=== PATIENT | male | born 1930 | race Caucasian/White ===

== ENCOUNTER 2016-07-09 07:55 | Outpatient (CLI) | payer MEDICARE, BC ==
[~2016-07-09] VITALS: Ht 170.2 cm; Wt 68.2 kg
--- NOTE | ~2016-07-09 | HEMODYNAMI ---
PATIENT:MADHAV MCCARTY MEDICAL RECORD: [id number] : 34 LOCATION:D.CAT ADMISSION DATE: 07/09/16 Generatedon:07/09/201611:23 Patient name: MADHAV MCCARTY Patient #: [id number] SSN: : [id number] Date of study: 07/09/2016 Page: Of Hemodynamic Procedure Report Patient Data Patient Demographics Procedure consent was obtained First Name: MADHAV Gender: Male Last Name: BIBIANA : 1930 Patient #: [id number] Age: 86 year(s) Race: Unknown Additional ID: [id number] Contact details [address]: [address] [place] [address] State: [place] City: [place] Zip code: [address] Past Medical History Allergies Allergen Reaction Date Comments Reported Penicillins 07/09/2016 Admission Admission Data Admission Date: 07/09/2016 Admission Time: 7:55 Lab Results Lab Result Date: 07/09/2016 Lab Result Time: 0:00 Biochemistry Name Units Result Min Max Creatinine mg/dl 1.1 --(--*-)-- 0.6 1.3 CBC Name Units Result Min Max Hemoglobin g/dl 13.6 --(*---)-- 13.5 17.5 Procedure Procedure Types Cath Procedure Diagnostic Procedure LHC LHC w/Coronaries w/Grafts PCI Procedure SVG-BMS/OSEI Initial Miscellaneous Procedures Moderate Sedation up to 30 minutes Procedure Description Procedure Date Procedure Date: 07/09/2016 Procedure Start Time: 10:39 Procedure End Time: 11:05 Procedure Staff Name Function Norma Mata RT Monitor Vel Goel RT Court Magistrate Boby Mckoy RT Scrub Anali Little RN Nurse Jersey Buck MD Performing Physician Procedure Data Cath Procedure Fluoroscopy Diagnostic fluoroscopy Total fluoroscopy Time: 7.5 time: 7.5 min min Diagnostic fluoroscopy Total fluoroscopy dose: 376 dose: 376 mGy mGy Contrast Material Contrast Material Type Amount (ml) Isovue 300 183 Entry Location Entry Primary Successful Side Size Upsize Upsize Entry Closure Srinivasan ccessful Closure Location (Fr) 1 (Fr) 2 (Fr) Remarks Device Remarks Femoral Right 5 Fr 6 Fr Mechanical artery Short Compression Estimated blood loss: 10 ml Diagnostic catheters Device Type Used For End Catheter Placement Cordis 5Fr Pigtail LV Angiography Catheter (MP) Cordis 5Fr JL 4.0 Left Coronary Catheter (MP) Angiography Cordis 5Fr 3DRC Catheter Internal mammary (MP) arteriography Cordis 5Fr 3DRC Catheter SVG Angiography (MP) Diagnostic Infinity 5Fr SVG Angiography AR 2 MOD catheter Procedure Complications No complications Procedure Medications Medication Administration Route Dosage Oxygen NC 2 l/min Lidocaine 2% added to field 20 Heparin Flush Bag added to field 2 bags (1000units/500ml NS) 0.9% NaCl I.V. 100 ml/hr Versed I.V. 1 mg Fentanyl I.V. 50 mcg Versed I.V. 1 mg Fentanyl I.V. 50 mcg Heparin Bolus I.V. 5000 units Integrilin (Bolus I.V. 6.2 ml 2mg/ml) Plavix P.O. 600 mg Hemodynamics Rest HGB: 13.6 (g/dl) Heart Rate: 76 (bpm) Snapshots Pre Cath Intra NCS Post Cath Vital Signs Time Heart Resp SPO2 etCO2 [id number] NIBP (mmHg) Rhythm Pain Sedation Rate (ipm) (%) (mmHg) (mmHg) Status Level (bpm) 10:28:37 75 17 98 0 0 169/88(135) NSR 0 (11) 10(A) , No pain 10:32:57 73 16 99 0 0 158/83(132) NSR 0 (11) 10(A) , No pain 10:37:13 69 16 99 0 0 149/80(126) NSR 0 (11) 10(A) , No pain 10:41:27 68 18 99 0 0 135/80(118) NSR 0 (11) 9(A) , No pain 10:45:37 73 15 98 0 0 143/72(119) NSR 0 (11) 9(A) , No pain 10:49:49 78 17 99 0 0 151/77(120) NSR 0 (11) 9(A) , No pain 10:54:05 77 18 99 0 0 138/70(127) NSR 0 (11) 9(A) , No pain 10:58:17 74 17 99 0 0 137/69(114) NSR 0 (11) 10(A) , No pain 11:02:29 80 16 99 0 0 143/73(121) NSR 0 (11) 10(A) , No pain Medications Time Medication Route Dose Verified Delivered Reason Not es Effectiveness by by 10:35:02 Oxygen NC 2 l/min Jersey Buffie used for Cielo Little RN procedure 10:35:09 Lidocaine 2% added 20ml Jersey Buffie used for to vial Cielo Little RN procedure field 10:35:15 Heparin Flush added 2 bags Jersey Buffie used for Bag to Cielo Little RN procedure (1000units/500ml field NS) 10:35:27 0.9% NaCl I.V. 100ml/hr Jersey Buffike Per physician Cielo Little RN 10:38:28 Versed I.V. 1 mg Jersey Gayie for sedation Cielo Little RN 10:38:34 Fentanyl I.V. 50 mcg Jersey Gayie for sedation Cielo Little RN 10:42:17 Versed I.V. 1 mg Jersey Buffie for sedation Cielo Little RN 10:42:21 Fentanyl I.V. 50 mcg Jersey Buffie for sedation Cielo Little RN 10:48:27 Heparin Bolus I.V. 5000 Jersey Buffie for emily ified units Cielo Little RN anticoagulation with dr buck 10:50:55 Integrilin I.V. 6.2 ml Jersey Buffie for Was kassie (Bolus 2mg/ml) Cielo Little RN antiplatelet 3.8 ml therapy of vial. 11:02:18 Plavix P.O. 600 mg Jersey Buffie for Cielo Little RN antiplatelet therapy Procedure Log Time Note 10:11:03 Vel LEOS(R) sent for patient. Start room use. 10:11:05 Time tracking: Regular hours 10:11:08 Plan of Care:Hemodynamics will remain stable., Cardiac rhythm will remain stable., Comfort level will be maintained., Respiratory function will remain adequate., Patient/ family verbilizes understanding of procedure., Procedure tolerated without complication., Recovers from procedure without complications.. 10:22:09 Patient received from Pre/Post Procedure Room to CCL 1 Alert and oriented. Tansferred to table in Supine position. 10:22:11 Warm blankets applied, and jessica hugger turned on for patient comfort. 10:22:12 Correct patient and procedure confirmed by team. 10:22:14 Signed procedure consent form obtained from patient. 10:22:15 ECG and BP/O2 sat monitors applied to patient. 10:22:17 Full Disclosure recording started 10:27:30 Vital chart was started 10:32:06 Baseline sample Acquired. 10:32:09 Rhythm: sinus rhythm 10:32:29 H&P Date Dictated: 06/17/2016 Within 30 days and on chart., H&P Addendum completed by physician on day of procedure. (MUST COMPLETE FOR ALL OUTPATIENTS). 10:32:38 Pre-procedure instructions explained to patient. 10:32:39 Pre-op teaching completed and patient verbalized understanding. 10:32:47 Family in patients room. 10:32:50 Patient NPO since Midnight. 10:32:59 Patient allergic to Penicillins 10:33:04 Is the patient allergic to Iodine/contrast media? No. 10:33:11 Is patient on blood thinner?No 10:33:13 Patient diabetic? No. 10:33:18 Previous problem with sedation/anesthesia? No ? 10:33:19 Snore? Yes 10:33:20 Sleep apnea? No 10:33:21 Deviated septum? No 10:33:22 Opens mouth fully? Yes 10:33:23 Sticks out tongue? Yes 10:33:26 Airway obstruction? No ? 10:33:28 Dentures? No ? 10:33:35 Pre procedure: right dorsailis pedis pulse 2+ Normal; easily identifiable; not easily obliterated 10:33:38 Patient pain scale 0/10 ?. 10:33:44 IV patent on arrival in left hand with 0.9% NaCl at O. 10:34:06 Lab Result : Hemoglobin 13.6 g/dl 10:34:06 Lab Result : Creatinine 1.1 mg/dl 10:34:10 Lab results completed and on chart. 10:34:13 Alarms reviewed by R. N. 10:34:13 Right groin area was prepped with chlora-prep and draped in sterile fashion 10:34:14 Sharps counted by scrub and verified by R.N. 10:34:15 Final Timeout: patient, procedure, and site verified with staff and physician. All members of the team are in agreement. 10:34:17 Right groin site verified by team. 10:34:20 Physical assessment completed. ASA score P 2 - A patient with mild systemic disease as per Jersey Buck MD. 10:34:22 Sedation plan: IV Moderate Sedation Versed, Fentanyl 10:34:28 Use device set Femoral Dx 10:34:29 Bag Decanter opened to sterile field. 10:34:29 Acist Syringe opened to sterile field. 10:34:30 Terumo 5Fr Lincoln Sheath opened to sterile field. 10:34:30 Medline Cath Pack opened to sterile field. 10:34:31 St Jared 260cm J .035 wire opened to sterile field. 10:34:32 Acist Hand Control opened to sterile field. 10:34:33 Diagnostic Infinity 5Fr Multipack catheter opened to sterile field. 10:34:33 Acist Manifold opened to sterile field. 10:34:34 Tegaderm 4 x 4 opened to sterile field. 10:35:02 Oxygen 2 l/min NC was given by Anali Little RN; used for procedure; 10:35:09 Lidocaine 2% 20ml vial added to field was given by Anali Little RN; used for procedure; 10:35:15 Heparin Flush Bag (1000units/500ml NS) 2 bags added to field was given by Anali Little RN; used for procedure; 10:35:27 0.9% NaCl 100ml/hr I.V. was given by Anali Little RN; Per physician; 10:37:56 Zero performed for pressure channel P1 10:38:01 Zero performed for pressure channel P1 10:38:28 Versed 1 mg I.V. was given by Anali Little RN; for sedation; 10:38:34 Fentanyl 50 mcg I.V. was given by Anali Little RN; for sedation; 10:39:31 Procedure started. 10:39:45 Local anesthetic to right femoral artery with Lidocaine 2% by Jersey Buck MD.INITIAL ACCESS ONLY 10:41:48 A 5 Fr sheath was inserted into the Right Femoral artery 10:42:02 A Cordis 5Fr Pigtail Catheter (MP) was advanced over the wire and used for LV Angiography. 10:42:17 Versed 1 mg I.V. was given by Anali Little RN; for sedation; 10:42:21 Fentanyl 50 mcg I.V. was given by Anali Little RN; for sedation; 10:42:48 LV gram done using [place] 10:42:50 LV hemodynamics recorded. 10:42:54 Injector settings: Ml/sec: 5, Volume: 15, 10:42:56 Catheter removed. 10:43:04 A Cordis 5Fr JL 4.0 Catheter (MP) was advanced over the wire and used for Left Coronary Angiography. 10:43:40 Catheter removed. 10:44:55 A Cordis 5Fr 3DRC Catheter (MP) was advanced over the wire and used for Internal mammary arteriography.To LAD 10:45:10 A Cordis 5Fr 3DRC Catheter (MP) was advanced over the wire and used for SVG Angiography.To RCA 10:45:57 Catheter removed. 10:47:05 A Diagnostic Infinity 5Fr AR 2 MOD catheter was advanced over the wire and used for SVG Angiography.To OM 10:47:08 Catheter removed. 10:47:18 Medtronic Launcher 6Fr AR 2.0 guide catheter opened to sterile field. 10:47:28 SLR Technology Solutions BasixCompak Inflation Kit opened to sterile field. 10:47:28 Brandon Whisper J 300cm 0.014 guide wire opened to sterile field. 10:47:36 Terumo 6Fr Lincoln Sheath opened to sterile field. 10:48:27 Heparin Bolus 5000 units I.V. was given by Anali Little RN; for anticoagulation; verified with dr buck 10:49:20 Sheath upsized to a 6 Fr Short. 10:49:27 6 Fr AR 2.0 guide catheter was inserted over the wire 10:50:55 Integrilin (Bolus 2mg/ml) 6.2 ml I.V. was given by Anali Little RN; for antiplatelet therapy; Wasted 3.8 ml of vial. 10:50:58 Whisper wire advanced. 10:53:04 The Medtronic Resolute 2.25 X 12 stent was advanced then removed because of failure to cross lesion 10:55:07 Inflation number: 1 A Strawberry energy [place] 2.0 X 12 balloon was prepped and advanced across the Aorta Left -> 1st Ob Dalia, then inflated to 13 OVI for 0:04 (min:sec). 10:55:25 Inflation number: 2 The [place] QCoefficient [place] 2.0 X 12 balloon was reinflated across the Aorta Left -> 1st Ob Dalia, to 13 OVI for 0:05 (min:sec). 10:55:47 Balloon removed over the wire. 10:57:52 Inflation Number: 3 A Medtronic Resolute 2.25 X 12 stent was prepped and advanced across the Aorta Left -> 1st Ob Dalia. The stent was deployed at 11 OVI for 0:07 (min:sec). 10:58:27 Stent catheter was removed intact over wire. 10:58:28 Guide catheter removed. 10:58:28 Wire removed. 10:58:35 Sheath removed intact; hemostasis achieved with Mechanical Compression to the Right Femoral artery. 10:58:42 Vascade 6/7 Fr Closure Device opened to sterile field. 10:58:45 Procedure ended.(Physican Out) 10:59:00 Fluoroscopy time 07.50 minutes. 10:59:03 Fluoroscopy dose: 376 mGy 10:59:03 Flurop Dose total: 376 10:59:13 Contrast amount:Isovue 300 183ml. 10:59:15 Sharps counted by scrub and verified by R.N. 10:59:16 Insertion/operative site no bleeding no hematoma. 10:59:21 Post-op/insertion site Right Femoral artery dressed using a 4 x 4 and Tegaderm. 10:59:25 Post right femoral artery:stable, clean and dry 10:59:27 Post Procedure Pulses reassessed and unchanged 10:59:32 Post-procedure physical assessment completed. ASA score P 2 - A patient with mild systemic disease as per Jersey Buck MD. 10:59:34 Post procedure rhythm: unchanged. 10:59:37 Estimated blood loss: 10 ml 10:59:38 Post procedure instruction explained to patient.Patient verbalizes understanding. 10:59:39 Patient needs reinforcement of post procedure teaching. 11:00:08 Procedure type changed to Cath procedure, Diagnostic procedure, LHC, LHC w/Coronaries w/Grafts, PCI procedure, SVG-BMS/OSEI Initial, Miscellaneous Procedures, Moderate Sedation up to 30 minutes 11:01:52 Procedure and supply charges have been captured, reviewed, submitted and are correct. 11:01:59 Procedure Complication : No complications 11:02:02 See physician's report for complete and final results. 11:02:18 Plavix 600 mg P.O. was given by Anali Little RN; for antiplatelet therapy; 11:05:00 Femstop placed over the right femoral artery at 100 mmHg. Hemostasis achieved. 11:05:00 Post right femoral artery:bleeding, hematoma 11:05:00 St Jared Femstop Arch Gold opened to sterile field. 11:05:07 Vital chart was stopped 11:05:09 Report given to Pre/Post Procedure Room. 11:05:12 Patient transfered to Pre/Post Procedure Room with Bed. ::19 Procedure ended. :05:19 Full Disclosure recording stopped 11:05:24 End room use (Document Last) Intervention Summary Intervention Notes Time ActionType Lesion and Equipment Action# Pressure Duration Attributes Used 10:53:04 Discard Medtronic Stent Resolute 2.25 X 12 stent 10:55:07 Inflate Aorta Left [place] 1 13 00:04 balloon -> 1st Ob Sci Dalia [place] 2.0 X 12 balloon 10:55:25 Reinflate Aorta Left [place] 2 13 00:05 balloon -> 1st Ob Sci Dalia [place] 2.0 X 12 balloon 10:57:52 Place stent Aorta Left Medtronic 3 11 00:07 -> 1st Ob Resolute Dal[place] 2.25 X 12 stent Device Usage Item Name Manufacture Quantity Catalog Number Hospital Part Current Mini mal Lot# / Charge Number Stock Stock Serial# Code Acist Acist 1 43430 [id number] 039700 657972 20 Syringe Medical Systems Inc Bag Microtek 1 2002S 729873 42540 940460 5 Versafe Inc. Medline Cardinal 1 [id number] 831757 75425 153378 5 Cath Pack Health Terumo 5Fr Terumo 1 [id number] 070956 087295 233548 [address] Jared 1 125766 497137 757279 180535 30 260cm J .035 wire Acist Hand Acist 1 69341 806252 935062 357021 5 Control Medical Systems Inc Acist Acist 1 36461 073647 972554 269565 5 Manifold Medical Systems Inc Diagnostic Cardinal 1 [id number] 385562 67350 263385 30 Meeting To You 5Fr Multipack catheter Tegaderm 4 3M 1 1626W 507546 914124 068720 5 x 4 Cordis 5Fr Cardinal 1 783559 5 Pigtail Health Catheter (MP) Cordis 5Fr Cardinal 1 124437 5 JL 4.0 Health Catheter (MP) Cordis 5Fr Cardinal 1 289704 5 3DRC Health Catheter (MP) Diagnostic Cardinal 1 [id number] 828176 642032 246068 20 Infinity Health 5Fr AR 2 MOD catheter Medtronic Medtronic 1 [id number] 863277 32552 398859 1 Launcher 6Fr [place] 2.0 guide catheter Brandon Brandon 1 [id number] 372045 796405 059269 5 Whisper J Vascular 300cm 0.014 guide wire Merit Merit 1 [id number] 141573 708712 626478 15 Innotech Solar Medical Inflation Kit Terumo 6Fr Terumo 1 [id number] 635168 241815 010929 40 Lincoln Sheath Medtronic Medtronic 1 [id number] 909893 152518 4 [id number] Resolute 2.25 X 12 stent [place] Sci [place] 1 [id number] 377088 951460 496789 1 [id number] Live Gamer Scientific 2.0 X 12 balloon Vascade 10/23 Cardiva 1 [id number] 733691 004089 706379 5 Fr Closure Medical, Device Inc. St Jared St Jared 1 [id number] 826341 742982 605085 5 Femstop Arch Gold Signature Audit [place] Stage Time Signature Unsigned Intra-Procedure 07/09/2016 Norma Green Counts 11:05:35 AM Counts RT(R) RT(R) 07/09/2016 11:20:32 AM Intra-Procedure 07/09/2016 Norma 11:23:01 AM Counts RT(R) Signatures Monitor : Norma Signature : Counts RT Date : Time : [facility] [address] [place] [address]
[2016-07-09 08:12] VITALS: BP 175/75; Ht 170.2 cm; Wt 68.2 kg
[2016-07-09] MEDS ORDERED: BAYER CHEWABLE81 MG PO (08:26)
[2016-07-09] MEDS ORDERED: BILBERRY100 MG PO (08:27)
[2016-07-09] MEDS ORDERED: FLOVENT DI50 MCG/DIS INH (08:27)
[2016-07-09 08:45] LABS: ANION GAP 11.2 mmol/L (8-16); CALCIUM 8.9 mg/dL (8.5-10.1); CARBON DIOXIDE 28.7 mmol/L (21.0-32.0); CREATININE - SERUM 1.1 mg/dL (0.6-1.3); POTASSIUM - SERUM 3.9 mmol/L (3.5-5.1)
[2016-07-09 09:35] LABS: BASOPHILS 0.2 % (0.0-2.0); EOSINOPHILS 7.4 % (0-7); HEMATOCRIT 41.1 % (42.0-54.0); HEMOGLOBIN 13.6 g/dL (13.5-17.5); MCH 30.5 pg (26.0-34.0); MCHC 33.1 g/dL (31.0-37.0); MCV 92.2 fL (80.0-100.0); MEAN PLATELET VOLUME 10.7 fL (7.4-10.4); MONOCYTES 10.1 % (2-11); NEUTROPHILS 54.3 % (40-80); PLATELET COUNT 167 10x3/uL (130-400); RBC 4.46 10x6/uL (4.20-6.10); RDW 13.1 % (11.5-14.5); WBC 5.4 10x3/uL (4.8-10.8)
[2016-07-09] MEDS ORDERED: PLAVIX75 MG PO (11:10)
--- NOTE | 2016-07-09 11:34 | NUR ---
HR 72 BP 164/82 NO C/O OR DISTRESS NOTED. 6 FR VASCADE R/GROIN CDI NO BLEEDING NO HEMATOMA NOTED. INSTRUCTED PATIENT TO KEEP HEAD FLAT ON PILLOW WITH RLE STRAIGHT. FAMILY AT SIDE
--- NOTE | 2016-07-09 11:56 | NUR ---
WATER GIVEN. NO C/O NAUSEA AT THIS TIME. WILL CONTINUE TO MONITOR.
--- NOTE | 2016-07-09 12:09 | NUR ---
SANDWICH TRAY GIVEN TO PATIENT WITH ASSISTING
--- NOTE | 2016-07-09 12:31 | NUR ---
1215 REPORT AND CARE FROM LAVELL CAT RN. PT DENIES ANY C/O. VSS. FEMSTOP IN PLACE TO RIGHT GROIN, NO BLEEDING OR HEMATOMA NOTED. PEDAL PULSES PALPABLE. FEET WARM TO TOUCH, CAP REFILL IS BRISK. AT BEDSIDE. PT IS TOLERATING DIET WITH NO C/O NAUSEA.
--- NOTE | 2016-07-09 13:27 | NUR ---
1315 PT DENIES ANY C/O. PRESSURE HAS BEEN RELIEVED FROM FEMSTOP WITH NO BLEEDING OR HEMATOMA NOTED. PEDAL PULSES PALPABLE. FAMILY AT BEDSIDE. CALL LIGHT IN REACH, INSTRUCTED PT TO CALL FOR NEEDS.
--- NOTE | 2016-07-09 15:20 | NUR ---
1450 DRESING TO RIGHT GROIN REMAINS CDI, NO BLEEDING OR HEMATOMA AT SITE. PEDAL PULSES PALPABLE. PT DENIES ANY C/O. IV DC'D WITH CATH INTACT. PT DRESSING FOR DC TO HOME. DC INSTUCTIONS HAVE BEEN REVIEWED AND PT/FAMILY VERBALIZE UNDERSTANDING. WRITTEN COPIES PROVIDED. 1500 GROIN REMAINS STABLE WITH AMBULATION. PT ESCORTED TO PRIVATE AUTO VIA WC BY STAFF WITH SON DRIVING HIM HOME.
--- NOTE | 2016-07-12 08:47 | OP ---
PATIENT NAME: MADHAV MCCARTY MEDICAL RECORD: [id number] :34 LOCATION:D.CAT ADMISSION DATE: SURGEON: SOHAIL WEBB MD DATE OF OPERATION: 07/09/2016 PROCEDURES: 1. PTCA stent of left circumflex through the patent vein graft. 2. Left heart catheterization. 3. Selective coronary angiography. 4. Vein graft angiography. 5. GARDNER angiography. 6. Left ventriculogram. INDICATION: Angina and coronary artery disease. DESCRIPTION OF PROCEDURE: After informed consent was obtained and after detailed explanation of risks, benefits as well as alternative therapies, the patient elected to proceed with angiogram and angioplasty. The right femoral area was prepped and draped in normal sterile fashion. The right femoral artery was cannulated via modified Seldinger technique with placement of 6-Dominican sheath. All catheters exchanged through this sheath. FINDINGS: Left ventriculogram was performed in standard 30-degree [place] view reveals preserved cardiac wall motion, ejection fraction 55%. SELECTIVE CORONARY ANGIOGRAPHY: 1. Left main is closed. 2. Right coronary artery is closed. 3. Vein graft to the RCA is widely patent. Distal RCA has moderate diffuse disease, but is patent. 4. GARDNER to the LAD is patent. The distal LAD has moderate diffuse disease, but is patent. 5. Vein graft to the left circumflex is patent; however, the left circumflex has a 95% stenosis after the patent vein graft. PERCUTANEOUS TRANSLUMINAL CORONARY ANGIOPLASTY STENT OF THE LEFT CIRCUMFLEX AFTER THE VEIN GRAFT: The stent used was a 2.25 x 12 mm Resolute. Result was 0% residual stenosis. OVERALL IMPRESSION: Successful percutaneous transluminal coronary angioplasty stent of the left circumflex through the patent vein graft going from 95% initial stenosis to 0% residual. TRANSINT:[id number] Voice Confirmation ID: [id number] DOCUMENT ID: [id number] SOHAIL WEBB MD at 0847 CC: [id number] DICTATION DATE: 07/09/16 1104 [employer] SAL[employer] SPECIALIST: 07/09/16 1947 DEP CLI 07/09/16 [facility] [address] [place] [id number]
== END 2016-07-09 15:00 | disposition home or self-care (01) ==
LOC: D.CATH 07:55
PROVIDERS: Internal Medicine Interventional Cardiology
DX: I25.119 Atherosclerotic heart disease of native coronary artery with unspecified angina pectoris (principal); Z95.1 Presence of aortocoronary bypass graft
CPT/HCPCS: 93459; C9604

== ENCOUNTER 2017-08-21 08:25 | Emergency (ER) | payer MEDICARE, BC ==
[2016-07-09 08:12] VITALS: BMI 23.5
[~2017-08-21 08:25] MED LIST: BAYER CHEWABLE81 MG PO; BILBERRY100 MG PO; FLOVENT DI50 MCG/DIS INH; PLAVIX75 MG PO
[2017-08-21 09:14] LABS: BASOPHILS 0.2 % (0-2); EOSINOPHILS 2.5 % (0-7); HEMATOCRIT 37.9 % (42.0-54.0); HEMOGLOBIN 12.4 g/dL (13.5-17.5); IMMATURE GRANULOCYTES 0.4 % (0-5); LYMPHOCYTES 27.1 % (15-50); MCH 30.8 pg (26.0-34.0); MCHC 32.7 g/dL (31.0-37.0); MEAN PLATELET VOLUME 9.9 fL (7.4-10.4); MONOCYTES 12.7 % (2-11); NEUTROPHILS 57.1 % (40-80); PLATELET COUNT 187 10x3/uL (130-400); RBC 4.03 10x6/uL (4.20-6.10); RDW 12.8 % (11.5-14.5); WBC 4.9 10x3/uL (4.8-10.8)
[2017-08-21 09:26] LABS: ALBUMIN 3.2 g/dL (3.4-5.0); ANION GAP 13.4 mmol/L (8-16); BILIRUBIN - TOTAL 0.48 mg/dL (0.2-1.3); CARBON DIOXIDE 28.5 mmol/L (21.0-32.0); CREATININE - SERUM 1.3 mg/dL (0.6-1.3); POTASSIUM - SERUM 3.9 mmol/L (3.5-5.1); PROTEIN - SERUM 7.2 g/dL (6.4-8.2)
[2017-08-21 09:32] LABS: CALCIUM 8.3 mg/dL (8.5-10.1)
[2017-08-21 11:56] LABS: APPEARANCE CLEAR (CLEAR); BILIRUBIN NEGATIVE (NEGATIVE); COLOR YELLOW (YELLOW); GLUCOSE NEGATIVE (NEGATIVE); KETONE NEGATIVE (NEGATIVE); NITRITE NEGATIVE (NEGATIVE); PROTEIN NEGATIVE (NEGATIVE); SPECIFIC GRAVITY 1.005 (1.005-1.020); UROBILINOGEN NORMAL (NORMAL)
== END 2017-08-21 12:59 | disposition home or self-care (01) ==
LOC: D.ER 08:25
PROVIDERS: Emergency Medicine
DX: R10.9 Unspecified abdominal pain (principal); K56.7 Ileus, unspecified; I10 Essential (primary) hypertension

== ENCOUNTER 2020-01-15 15:51 | Emergency (ER) | payer MEDICARE, BC ==
[~2020-01-15] VITALS: Ht 170.2 cm; Wt 68.2 kg
[2020-01-15 15:58] VITALS: Ht 170.2 cm; Wt 68.2 kg
[2020-01-15 17:04] LABS: BASOPHILS 0.2 % (0-2); EOSINOPHILS 4.5 % (0-7); HEMATOCRIT 38.6 % (42.0-54.0); HEMOGLOBIN 12.7 g/dL (13.5-17.5); IMMATURE GRANULOCYTES 0.2 % (0-5); MCH 30.7 pg (26.0-34.0); MCHC 32.9 g/dL (31.0-37.0); MCV 93.2 fL (80.0-100.0); MEAN PLATELET VOLUME 9.4 fL (7.4-10.4); MONOCYTES 7.3 % (2-11); NEUTROPHILS 69.8 % (40-80); PLATELET COUNT 180 10x3/uL (130-400); RBC 4.14 10x6/uL (4.20-6.10); RDW 13.6 % (11.5-14.5); WBC 6.1 10x3/uL (4.8-10.8)
[2020-01-15 17:13] LABS: APTT 31.7 SECONDS (22.8-39.4); INR 0.98 (0.85-1.17); PROTIME 12.9 SECONDS (11.6-15.0)
[2020-01-15 17:19] LABS: CALC OSMOLALITY 283 mosm/kg (275-300); CALCIUM 8.8 mg/dL (8.5-10.1); CARBON DIOXIDE 31.3 mmol/L (21.0-32.0); CHLORIDE - SERUM 104 mmol/L (98-107); CREATININE - SERUM 1.4 mg/dL (0.6-1.3); GLUCOSE 112 mg/dL (74-106); POTASSIUM - SERUM 4.1 mmol/L (3.5-5.1); SODIUM 141 mmol/L (136-145); UREA NITROGEN 18 mg/dL (7-18); eGFR NON AFRICAN AMERICAN 51 mL/min (90-120)
[2020-01-15 17:38] LABS: ALBUMIN 3.6 g/dL (3.4-5.0); ALKALINE PHOSPHATASE 73 U/L (30-120); ALT (SGPT) 16 U/L (10-68); BILIRUBIN - TOTAL 0.43 mg/dL (0.2-1.3); CKMB 0.7 U/L (0.0-3.6); CREATINE KINASE 57 UL (21-232); PROTEIN - SERUM 7.5 g/dL (6.4-8.2); THYROID STIMULATING HORMONE 1.86 uIU/mL (0.36-3.74)
[2020-01-15 17:42] LABS: TROPONIN-I < 0.017 ng/mL (0.000-0.060)
[2020-01-15] MEDS ORDERED: MECLIZINE HCL25 MG PO (18:33)
[2020-01-15 18:49] VITALS: BP 152/69
== END 2020-01-15 18:49 | disposition home or self-care (01) ==
LOC: D.ER 15:51
PROVIDERS: Family Medicine
DX: R42 Dizziness and giddiness (principal); I10 Essential (primary) hypertension; J45.909 Unspecified asthma, uncomplicated; Z95.1 Presence of aortocoronary bypass graft